=== PATIENT | male | born 1955 | race Native Hawaiian/Other Pacific Islander ===

== ENCOUNTER 2016-12-02 14:44 | Outpatient (CLI) | payer OTHER ==
[~2016-12-02 14:44] MED LIST: ACTOS45 MG PO; ASA LOW DOSE81 MG OR; BENA5CAP PO; CLEM2.687 OR; DIOVAN HCT160 MG/25 PO; GABA300C2 PO; KLOR-CON 1010 MEQ OR; LORTAB1 TA1 PO; LOTREL1 CA4 PO; MECLIZINE25 MG OR; OMEP20CA PO; PRAVACHOL20 MG PO; RANI150T78 PO; ROBAXIN-750750 MG PO; TRAMADOL HCL100 M1 OR; TRIM800T12 PO
[2016-12-02 15:37] LABS: PLATELET COUNT 217 K/uL (142-355)
[2016-12-02 16:00] LABS: POTASSIUM 3.3 mmol/L (3.6-5.2); SODIUM 140 mmol/L (136-145)
== END 2016-12-02 19:47 | disposition home or self-care (01) ==
LOC: LAB 14:44
PROVIDERS: Nurse Practitioner Family
DX: I10 Essential (primary) hypertension (principal); E78.4 Other hyperlipidemia; E11.9 Type 2 diabetes mellitus without complications; R39.198 Other difficulties with micturition; E55.9 Vitamin D deficiency, unspecified
CPT/HCPCS: 80053; 80061; 82306; 82607; 83036; 84154; 84439; 84443; 85027

== ENCOUNTER 2017-11-03 13:43 | Outpatient (CLI) | payer OTHER ==
[2017-11-03 14:49] LABS: PLATELET COUNT 207 K/uL (142-355)
[2017-11-03 15:38] LABS: POTASSIUM 3.1 mmol/L (3.6-5.2)
== END 2017-11-03 20:27 | disposition home or self-care (01) ==
LOC: LAB 13:43
PROVIDERS: Nurse Practitioner Family
DX: I10 Essential (primary) hypertension (principal); Z79.899 Other long term (current) drug therapy; E78.4 Other hyperlipidemia; E11.9 Type 2 diabetes mellitus without complications; E55.9 Vitamin D deficiency, unspecified; Z51.81 Encounter for therapeutic drug level monitoring
CPT/HCPCS: 80053; 80061; 83036; 84436; 84443; 85027

== ENCOUNTER 2018-01-13 12:08 | Outpatient (CLI) | payer OTHER | END 2018-01-13 23:59 | disposition home or self-care (01) | LOC: LABW 12:08 | DX: B35.1 Tinea unguium (principal) | CPT/HCPCS: 36415; 84450; 84460 ==

== ENCOUNTER 2018-03-08 09:46 | Outpatient (CLI) | payer OTHER | END 2018-03-08 21:39 | disposition home or self-care (01) | LOC: LABW 09:46 | DX: B35.1 Tinea unguium (principal) | CPT/HCPCS: 36415; 84450; 84460 ==

== ENCOUNTER 2018-06-23 11:04 | Outpatient (CLI) | payer OTHER ==
[2018-06-23 11:25] LABS: PLATELET COUNT 219 K/uL (142-355)
[2018-06-23 11:48] LABS: POTASSIUM 3.5 mmol/L (3.6-5.2)
== END 2018-06-23 21:15 | disposition home or self-care (01) ==
LOC: LABW 11:04
PROVIDERS: Nurse Practitioner Family
DX: I10 Essential (primary) hypertension (principal); E66.01 Morbid (severe) obesity due to excess calories; K21.9 Gastro-esophageal reflux disease without esophagitis; M19.90 Unspecified osteoarthritis, unspecified site; E11.9 Type 2 diabetes mellitus without complications; E78.5 Hyperlipidemia, unspecified; Z00.00 Encounter for general adult medical examination without abnormal findings; Z79.899 Other long term (current) drug therapy
CPT/HCPCS: 36415; 80053; 80061; 83036; 84439; 84443; 85027

== ENCOUNTER 2018-12-23 11:19 | Outpatient (CLI) | payer OTHER ==
[2018-12-23 11:46] LABS: PLATELET COUNT 216 K/uL (142-355)
[2018-12-23 12:10] LABS: POTASSIUM 2.9 mmol/L (3.6-5.2)
== END 2018-12-23 23:48 | disposition home or self-care (01) ==
LOC: LABW 11:19
PROVIDERS: Nurse Practitioner Family
DX: E11.9 Type 2 diabetes mellitus without complications (principal); K21.9 Gastro-esophageal reflux disease without esophagitis; I10 Essential (primary) hypertension; N40.0 Benign prostatic hyperplasia without lower urinary tract symptoms; M19.90 Unspecified osteoarthritis, unspecified site; E78.49 Other hyperlipidemia
CPT/HCPCS: 36415; 80053; 80061; 83036; 84153; 84439; 84443; 85027

== ENCOUNTER 2019-12-28 12:30 | Outpatient (CLI) | payer OTHER | END 2019-12-28 19:18 | disposition home or self-care (01) | LOC: RESP 12:30 | DX: E11.9 Type 2 diabetes mellitus without complications (principal); K21.9 Gastro-esophageal reflux disease without esophagitis; E78.49 Other hyperlipidemia; I10 Essential (primary) hypertension; M19.90 Unspecified osteoarthritis, unspecified site; R42 Dizziness and giddiness; Z79.899 Other long term (current) drug therapy | CPT/HCPCS: 93005 ==

== ENCOUNTER 2020-01-16 10:42 | Outpatient (CLI) | payer OTHER ==
[2020-01-16 12:06] LABS: POTASSIUM 3.1 mmol/L (3.6-5.2)
[2020-01-16 13:09] LABS: PLATELET COUNT 193 K/uL (142-355)
== END 2020-01-16 21:09 | disposition home or self-care (01) ==
LOC: LAB 10:42
PROVIDERS: Family Medicine
DX: R42 Dizziness and giddiness (principal); R00.2 Palpitations; E11.9 Type 2 diabetes mellitus without complications; K21.9 Gastro-esophageal reflux disease without esophagitis; E78.49 Other hyperlipidemia; I10 Essential (primary) hypertension; M19.90 Unspecified osteoarthritis, unspecified site; Z79.899 Other long term (current) drug therapy
CPT/HCPCS: 36415; 80053; 80061; 83036; 84439; 84443; 84481; 85027

== ENCOUNTER 2020-02-20 10:32 | Outpatient (CLI) | payer OTHER ==
[2020-02-20 10:51] LABS: PLATELET COUNT 242 K/uL (142-355)
[2020-02-20 11:01] LABS: POTASSIUM 3.1 mmol/L (3.6-5.2)
== END 2020-02-20 22:37 | disposition home or self-care (01) ==
LOC: LAB 10:32
PROVIDERS: Nurse Practitioner Family
DX: I10 Essential (primary) hypertension (principal); R19.7 Diarrhea, unspecified; R11.10 Vomiting, unspecified
CPT/HCPCS: 80053; 81000; 85027

== ENCOUNTER 2020-06-11 17:26 | Outpatient (CLI) | payer OTHER ==
[2020-06-11 17:58] LABS: PLATELET COUNT 211 K/uL (142-355)
[2020-06-11 18:16] LABS: POTASSIUM 3.5 mmol/L (3.6-5.2)
== END 2020-06-11 19:00 | disposition home or self-care (01) ==
LOC: LAB 17:26
PROVIDERS: ATTEND Family Medicine
DX: I10 Essential (primary) hypertension (principal); E78.49 Other hyperlipidemia; E11.9 Type 2 diabetes mellitus without complications; K21.9 Gastro-esophageal reflux disease without esophagitis; M25.519 Pain in unspecified shoulder; M19.90 Unspecified osteoarthritis, unspecified site; K64.9 Unspecified hemorrhoids
CPT/HCPCS: 80053; 80061; 83036; 84439; 84443; 85027

== ENCOUNTER 2020-09-17 12:24 | Outpatient (CLI) | payer OTHER ==
[2020-09-17 12:58] LABS: PLATELET COUNT 167 K/uL (142-355)
[2020-09-17 13:07] LABS: POTASSIUM 3.3 mmol/L (3.6-5.2)
== END 2020-09-17 23:15 | disposition home or self-care (01) ==
LOC: LAB 12:24
PROVIDERS: ATTEND Nurse Practitioner Family
DX: I10 Essential (primary) hypertension (principal); R35.1 Nocturia; E11.9 Type 2 diabetes mellitus without complications; K21.9 Gastro-esophageal reflux disease without esophagitis; E78.49 Other hyperlipidemia; R42 Dizziness and giddiness
CPT/HCPCS: 80053; 80061; 82043; 82570; 83036; 84439; 84443; 85027

== ENCOUNTER 2020-10-17 14:47 | Outpatient (CLI) | payer OTHER | END 2020-10-17 23:01 | disposition home or self-care (01) | LOC: INF | PROVIDERS: ATTEND Internal Medicine | DX: Z23 Encounter for immunization (principal) | CPT/HCPCS: 96372 ==

== ENCOUNTER 2020-11-08 14:26 | Outpatient (CLI) | payer OTHER | END 2020-11-08 19:57 | disposition home or self-care (01) | LOC: INF | PROVIDERS: ATTEND Internal Medicine | DX: Z23 Encounter for immunization (principal) | CPT/HCPCS: 96372 ==

== ENCOUNTER 2021-01-11 13:20 | Outpatient (CLI) | payer OTHER ==
[2021-01-21 07:14] LABS: POTASSIUM 3.4 mmol/L (3.6-5.2)
[2021-01-21 07:21] LABS: PLATELET COUNT 187 K/uL (142-355)
== END 2021-01-11 17:00 | disposition home or self-care (01) ==
LOC: LAB 13:20
PROVIDERS: ATTEND Nurse Practitioner Family
DX: I87.2 Venous insufficiency (chronic) (peripheral) (principal); I89.0 Lymphedema, not elsewhere classified; M15.8 Other polyosteoarthritis; I10 Essential (primary) hypertension; Z91.81 History of falling; E78.49 Other hyperlipidemia; E11.65 Type 2 diabetes mellitus with hyperglycemia; K21.9 Gastro-esophageal reflux disease without esophagitis; M54.89 Other dorsalgia; R42 Dizziness and giddiness; Z79.899 Other long term (current) drug therapy; R35.1 Nocturia
CPT/HCPCS: 80053; 80061; 81000; 82043; 82306; 82570; 82607; 82746; 83036; 84153; 84439; 84443; 85027

== ENCOUNTER 2021-01-25 11:13 | Outpatient (CLI) | payer OTHER | END 2021-01-25 22:01 | disposition home or self-care (01) | LOC: LAB 11:13 | PROVIDERS: ATTEND Nurse Practitioner Family | DX: I10 Essential (primary) hypertension (principal); E78.49 Other hyperlipidemia; E11.65 Type 2 diabetes mellitus with hyperglycemia; K21.9 Gastro-esophageal reflux disease without esophagitis; M54.89 Other dorsalgia; M19.90 Unspecified osteoarthritis, unspecified site; R42 Dizziness and giddiness; Z79.899 Other long term (current) drug therapy; R35.1 Nocturia | CPT/HCPCS: 83036 ==

== ENCOUNTER 2021-04-29 11:37 | Outpatient (CLI) | payer OTHER ==
[2021-04-29 11:58] LABS: PLATELET COUNT 196 K/uL (142-355)
[2021-04-29 12:14] LABS: POTASSIUM 3.2 mmol/L (3.6-5.2)
== END 2021-04-29 19:34 | disposition home or self-care (01) ==
LOC: LAB 11:37
PROVIDERS: ATTEND Nurse Practitioner Family
DX: I10 Essential (primary) hypertension (principal); I87.2 Venous insufficiency (chronic) (peripheral); E78.49 Other hyperlipidemia; E11.65 Type 2 diabetes mellitus with hyperglycemia; K21.9 Gastro-esophageal reflux disease without esophagitis; E66.9 Obesity, unspecified; M25.561 Pain in right knee
CPT/HCPCS: 80053; 80061; 82043; 82570; 83036; 84439; 84443; 85027

== ENCOUNTER 2021-06-18 08:54 | Outpatient (CLI) | payer OTHER | END 2021-06-18 19:03 | disposition home or self-care (01) | LOC: US 08:54 | PROVIDERS: ATTEND Nurse Practitioner Family | DX: I10 Essential (primary) hypertension (principal); E11.9 Type 2 diabetes mellitus without complications ==

== ENCOUNTER 2021-10-31 13:22 | Outpatient (CLI) | payer OTHER | END 2021-10-31 21:29 | disposition home or self-care (01) | LOC: LAB 13:22 | PROVIDERS: ATTEND Nurse Practitioner Family | DX: M19.90 Unspecified osteoarthritis, unspecified site (principal); E11.9 Type 2 diabetes mellitus without complications; K21.9 Gastro-esophageal reflux disease without esophagitis; I10 Essential (primary) hypertension; E78.49 Other hyperlipidemia | CPT/HCPCS: 81000; 82043; 82570 ==

== ENCOUNTER 2021-11-11 11:16 | Outpatient (CLI) | payer OTHER ==
[2021-11-11 11:51] LABS: POTASSIUM 3.2 mmol/L (3.6-5.2)
== END 2021-11-11 20:50 | disposition home or self-care (01) ==
LOC: LABW 11:16
PROVIDERS: ATTEND Nurse Practitioner Family
DX: I10 Essential (primary) hypertension (principal); E78.49 Other hyperlipidemia; E11.9 Type 2 diabetes mellitus without complications; E87.6 Hypokalemia
CPT/HCPCS: 36415; 80053

== ENCOUNTER 2022-01-21 21:54 | Emergency (ER) | payer OTHER ==
[~2022-01-21] VITALS: Ht 167.6 cm; Wt 135.6 kg
[2022-01-21 22:12] VITALS: TEMP 98.2
[2022-01-21 22:46] LABS: PLATELET COUNT 177 K/uL (142-355)
[2022-01-21 22:59] LABS: POTASSIUM 3.2 mmol/L (3.6-5.2)
[2022-01-21 23:16] LABS: PARTIAL THROMBOPLASTIN TIME 26.7 SECONDS (24.5-33.6)
[2022-01-22 00:27] VITALS: BP 158/81
== END 2022-01-22 00:35 | disposition home or self-care (01) ==
LOC: ED 21:54
PROVIDERS: Emergency Medicine
DX: I10 Essential (primary) hypertension (principal); E11.65 Type 2 diabetes mellitus with hyperglycemia; E66.8 Other obesity
CPT/HCPCS: 36415; 80053; 83880; 84484; 85027; 85610; 85730; 93005; 99283; J0360

== ENCOUNTER 2022-03-27 13:02 | Outpatient (CLI) | payer OTHER ==
[2022-03-27 15:45] LABS: PLATELET COUNT 151 K/uL (142-355)
[2022-03-27 15:47] LABS: POTASSIUM 3.3 mmol/L (3.6-5.2)
== END 2022-03-27 21:03 | disposition home or self-care (01) ==
LOC: LABW 13:02
PROVIDERS: ATTEND Internal Medicine
DX: N18.2 Chronic kidney disease, stage 2 (mild) (principal)
CPT/HCPCS: 36415; 80053; 81002; 82043; 82306; 82330; 82550; 82570; 83735; 83970; 84100; 84156; 85027

== ENCOUNTER 2022-08-26 15:10 | Outpatient (CLI) | payer OTHER ==
[2022-08-26 16:25] LABS: PLATELET COUNT 133 K/uL (142-355)
[2022-08-26 16:29] LABS: POTASSIUM 5.1 mmol/L (3.6-5.2)
== END 2022-08-26 23:24 | disposition home or self-care (01) ==
LOC: LABW 15:10
PROVIDERS: ATTEND Internal Medicine
DX: I12.9 Hypertensive chronic kidney disease with stage 1 through stage 4 chronic kidney disease, or unspecified chronic kidney disease (principal); N18.2 Chronic kidney disease, stage 2 (mild)
CPT/HCPCS: 36415; 80053; 82024; 82088; 82306; 82330; 82533; 82550; 83735; 83835; 83970; 84100; 84244; 84436; 84443; 84550; 85027

== ENCOUNTER 2022-09-03 10:39 | Outpatient (CLI) | payer OTHER | END 2022-09-03 18:57 | disposition home or self-care (01) | LOC: US 10:39 | PROVIDERS: ATTEND Internal Medicine Cardiovascular Disease | DX: R07.89 Other chest pain (principal); R09.89 Other specified symptoms and signs involving the circulatory and respiratory systems; I10 Essential (primary) hypertension ==

== ENCOUNTER 2022-09-04 08:27 | Outpatient (CLI) | payer OTHER ==
[~2022-09-04] VITALS: Ht 167.6 cm; Wt 123.8 kg
== END 2022-09-04 21:21 | disposition home or self-care (01) ==
LOC: NM 08:27
PROVIDERS: ATTEND Internal Medicine Cardiovascular Disease
DX: R07.89 Other chest pain (principal); R09.89 Other specified symptoms and signs involving the circulatory and respiratory systems; I10 Essential (primary) hypertension
CPT/HCPCS: A9500; J2785

== ENCOUNTER 2022-12-23 09:06 | Outpatient (CLI) | payer OTHER | END 2022-12-23 18:55 | disposition home or self-care (01) | LOC: MRI 09:06 | PROVIDERS: ATTEND Nurse Practitioner Family | DX: N63.10 Unspecified lump in the right breast, unspecified quadrant (principal); N63.20 Unspecified lump in the left breast, unspecified quadrant; E22.1 Hyperprolactinemia; N64.59 Other signs and symptoms in breast | CPT/HCPCS: 36415; 82565; 84520; G0279 ==